=== PATIENT | female | born 1985 | race Caucasian/White ===

== ENCOUNTER 2016-08-05 11:06 | Outpatient (CLI) | payer MEDICAID ==
[~2016-08-05] VITALS: Ht 152.4 cm; Wt 64.4 kg
[~2016-08-05 11:06] MED LIST: PREN1TAB49
[2016-08-05 12:04] VITALS: BP 101/57; PULSE 67; RESP 20
--- NOTE | 2016-08-05 12:07 | QN ---
Documentation Comment Laborist ER panel pt 31 y.o. G3 P@ with an IUP at 33 weeks 2 days c/o shortness of breath and numbness of her right arm. Pt is an ER pt but was sent up to make sure the baby is fine before being evaluated down there. +FM. no VB or leaking. Denies UC's. PMHx: none. PSHx: C/S x 2. NKDA. BP 101/58 T= 98.0 O2 sat 98-100% NST: baseline 140 bpm with accels to 155 bpm. No decels. No UC's. Baby is moving a lot!!! A: IUP at 33w 2d. Shotness of breath and numbness of the right arm. P: Return pt to the ER for evaluation. THEODORE HOFFMAN MD August 05, 2016 12:07
--- NOTE | 2016-08-05 12:09 | TRIAGE ---
OB Triage Datetime Report Generated by CPN: 08/05/2016 12:09 Datetime: 08/05/2016 12:00 Time of Arrival: 08/05/2016 11:00 EGA: 33.3 Arrived By: Ambulatory Arrived From: Home Chief Complaint: SOB RIGHT ARM NUMBNESS Movement: Present Contractions: Denies/Absent Vaginal Bleeding: None Patient Complaints: Other Time Provider Notified: 08/05/2016 12:00 Provider Notified: DR HOFFMAN Initial Plan: EFM,CALL DR REICHE Datetime: 08/05/2016 11:57 Maternal Assessment Level of Consciousness: Fully Conscious DTR's/Clonus: DTRs 2+ Headache: Denies Blurred Vision: No Nausea/Vomiting: Denies RUQ Epigastric Pain: Denies Facial Edema: None Labor Evaluation Frequency: NONE Heart Rate FHR Baseline Rate: 140 Monitor Mode: External US FHR Baseline Changes: No Baseline Change Variability: Moderate 6-25 bpm Accelerations: 15X15 Decelerations: None Category: Category I Pain Assessment Pain Scale: 0 Pain Presence: None/Denies Vaginal Exam Membrane Status: Intact Datetime: 08/05/2016 11:49 Maternal Assessment Level of Consciousness: Fully Conscious DTR's/Clonus: DTRs 2+; No Clonus Headache: Denies Blurred Vision: No Respiratory Effort: Unlabored; Regular Rhythm; Equal Expansion Breath Sounds, Left: Clear and Equal Breath Sounds, Right: Clear and Equal Nausea/Vomiting: Denies RUQ Epigastric Pain: Denies Facial Edema: None Temperature Route: Axillary Fall Risk Assessment History of Falling: (0) No Secondary Diagnosis: (0) No Ambulatory Aid: (0) Bedrest/Nurse Assist IV Therapy: (0) No Gait: (0) Normal/Bedrest/Immobile Mental Status: (0) Oriented to Own Ability Fall Score: 0 Fall Risk Score Definition: No Risk: No action required
[2016-08-05] MEDS ORDERED: ACET500C5 PO (14:32)
== END 2016-08-05 12:22 | disposition home or self-care (01) ==
LOC: OBT 11:06 → L-D 11:06 → OBT 12:22
PROVIDERS: ATTEND Obstetrics & Gynecology
DX: O26.893 Other specified pregnancy related conditions, third trimester (principal); R06.02 Shortness of breath; R20.0 Anesthesia of skin; Z3A.33 33 weeks gestation of pregnancy
CPT/HCPCS: G0463

== ENCOUNTER 2016-08-05 12:25 | Emergency (ER) | payer MEDICAID ==
[~2016-08-05] VITALS: Wt 94.5 kg
--- NOTE | 2016-08-05 14:08 | RADRPT ---
PROCEDURE: Ultrasound of the bilateral lower extremity venous system. CLINICAL INDICATION: Bilateral leg pain and swelling, deep venous thrombosis TECHNIQUE: Agustin scale with and without compression, color doppler, spectral doppler of the venous system of the bilateral lower extremities was performed. Venous augmentation maneuvers were utilized . COMPARISON: No prior studies are available for comparison. FINDINGS: RIGHT: Common femoral vein: Patent. Femoral vein: Patent. Popliteal vein: Patent. Calf veins: Patent. No soft tissue abnormalities are identified. LEFT: Common femoral vein: Patent. Femoral vein: Patent. Popliteal vein: Patent. Calf veins: Patent. No soft tissue abnormalities are identified. IMPRESSION: No evidence of a deep vein thrombosis within the bilateral lower extremities. RPTAT: AADD .Jay Anthony MD, MD Date Time Electronically viewed and signed by .Jay Atnhony MD, on 08/05/2016 14:08 .B/
[2016-08-05] MEDS ORDERED: ACET500C5 PO (14:32)
--- NOTE | 2016-08-05 14:37 | ERD ---
ER Documentation Chief Complaint Date/Time DATE: 08/05/16 TIME: 14:35 Chief Complaint MILD SOB SINCE LAST NIGHT. CLEARED BY OB. NO COUGH. NO FEVERS. HPI This 31-year-old female presents with sensation of shortness of breath or air hunger starting last night. She has some mild pain in the central chest wall pain in her right index finger as well. She is 34 weeks has been cleared by labor and delivery. She denies any recent illnesses, sustained anterior chest pain, shortness of breath, leg swelling, vaginal bleeding or abdominal pain ROS All systems reviewed and are negative except as per history of present illness. Medications Home Meds Active Scripts Acetaminophen* (Tylophen*) 500 Mg Capsule, 1 CAP PO Q6H Y for PAIN AND OR ELEVATED TEMP, #15 CAP Prov:ONESIMO SEO MD 08/05/16 Reported Medications Vits W-Ca,Fe,Fa(<1MG) () 1 Tab Tablet, DAILY 10/18/10 Allergies Allergies: Coded Allergies: No Known Drug Allergies (Verified Allergy, 10/18/10) PMhx/Soc Hx Miscellaneous Medical Probl: No (34 Weeks ) Hx Alcohol Use: No Hx Substance Use: No Hx Tobacco Use: No Smoking Status: Never smoker Physical Exam Vitals Vital Signs Date Time Temp Pulse Resp B/P Pulse Ox O2 Delivery O2 Flow Rate FiO2 08/05/16 12:31 97.2 70 18 91/52 97 Physical Exam Const: [] Alert, not ill-appearing per Head: Atraumatic Eyes: Normal Conjunctiva ENT: Normal External Ears, Nose and Mouth. Neck: Full range of motion..~ No meningismus. Resp: Clear to auscultation bilaterally Cardio: Regular rate and rhythm, no murmurs Abd: Soft, non tender, non distended. Normal bowel sounds Skin: No petechiae or rashes Back: No midline or flank tenderness Ext: No cyanosis, or edema Neur: Awake and alert Psych: Normal Mood and Affect Procedures/MDM EKG: Rate/Rhythm: [Normal Sinus Rhythm] rate equals 70 QRS, ST, T-waves: [No changes consistent w/ acute ischemia] Impression: [No evidence of ischemia or arrhythmia]. Impression-normal EKG Bilateral lower extremity Doppler negative for DVT. Patient presents with some signs and symptoms of chest wall discomfort and sensation of shortness of breath without signs or symptoms to suggest pulmonary medicine, pneumonia, acute coronary syndrome, additional emergent causes of presenting complaints. X-rays were deferred given no significant physical findings and risk of radiation. Patient was discharged home with a prescription for Tylenol and further observation. The patient was stable with no new complaints during the ER course. Clinically, there is no current evidence to suggest meningitis, sepsis, acute abdomen, pneumonia, acute coronary syndrome, pulmonary embolism, or any other emergent condition appearing to require further evaluation or hospitalization. The patient should certainly return for any new or worsening symptoms per the aftercare instructions. They should otherwise follow-up with her primary care doctor for reevaluation this week. Departure Diagnosis: Primary Impression: Shortness of breath Condition: Stable Patient Instructions: Coping with Shortness of Breath: Controlling Stress Additional Instructions: Examines normal hoy. Cheque otro vez con rodgers doctor primario en el proximo gamez or regresa para mas o nueva simptomas. ONESIMO SEO MD August 05, 2016 14:37
[2016-08-05 14:57] VITALS: BP 109/68; PULSE 68; RESP 16
== END 2016-08-05 14:58 | disposition home or self-care (01) ==
LOC: FTE 12:25
DX: R06.02 Shortness of breath (principal)
CPT/HCPCS: 93970; Z7502